=== PATIENT | male | born 1985 | race Two or more races ===

== ENCOUNTER 2018-02-24 16:35 | Emergency (ER) | payer MEDICAID, OTHER ==
[~2018-02-24] VITALS: Ht 188 cm; Wt 117.5 kg
[2018-02-24] MEDS ORDERED: [UNRECOGNIZED DRUG - OTHER] (17:06)
[2018-02-24] MEDS ORDERED: [UNRECOGNIZED DRUG - OTHER] (17:06)
[2018-02-24] MEDS ORDERED: [UNRECOGNIZED DRUG - OTHER] (17:07)
[2018-02-24] MEDS ORDERED: OMEG1CAP23 PO (17:08)
[2018-02-24 17:25] LABS: BASOPHILS # (AUTO) 0.04 x10^3/uL (0-0.1); BASOPHILS % (AUTO) 1 % (0-1); EOSINOPHILS # (AUTO) 0.29 x10^3/uL (0-0.4); EOSINOPHILS % (AUTO) 3 % (1-7); LYMPHOCYTES # (AUTO) 4.44 x10^3/uL (1-3.4); LYMPHOCYTES % (AUTO) 46 % (22-44); MD NO; MEAN CORPUSCULAR HEMOGLOBIN 30.6 pg (27.5-34.5); MEAN CORPUSCULAR HGB CONC 34.2 g/dL (33.2-36.2); MEAN CORPUSCULAR VOLUME 89.5 fL (81-97); MEAN PLATELET VOLUME 11.6 fL (7.4-10.4); MONOCYTES # (AUTO) 0.66 x10^3/uL (0.2-0.8); MONOCYTES % (AUTO) 7 % (2-9); NEUTROPHILS # (AUTO) 4.15 x10^3/uL (1.8-6.8); NEUTROPHILS % (AUTO) 43 % (42-75); PLATELET COUNT 202 x10^3/uL (130-400); RED BLOOD COUNT 5.28 x10^6/uL (4.38-5.82); RED CELL DISTRIBUTION WIDTH 12.7 % (9.4-14.8)
[2018-02-24 17:37] LABS: ALBUMIN 3.7 g/dL (3.4-5.0); ANION GAP 10 mmol/L (5-15); CALCIUM 8.7 mg/dL (8.5-10.1); CHLORIDE 106 mmol/L (98-107)
[2018-02-24 17:44] LABS: ALANINE AMINOTRANSFERASE 120 U/L (12-78); ALKALINE PHOSPHATASE 97 U/L (45-117); BILIRUBIN,TOTAL 0.4 mg/dL (0.2-1.0); CREATININE 1.26 mg/dL (0.7-1.3); TOTAL PROTEIN 7.7 g/dL (6.4-8.2); TROPONIN I < 0.015 ng/mL (0.000-0.045)
[2018-02-24] MEDS ORDERED: ASPIRIN 81 MG TABLET CHEW ONE (19:13)
[2018-02-24] MEDS ORDERED: ASPIRIN 81 MG TABLET CHEW PO ONE (19:30)
[2018-02-24 19:32] LABS: TROPONIN I < 0.015 ng/mL (0.000-0.045)
[2018-02-24 20:07] VITALS: BP 117/73
[2018-02-24 20:48] LABS: AMPHETAMINE SCREEN, URINE Negative (Negative); BARBITURATE SCREEN, URINE Negative (Negative); BENZODIAZEPINE SCREEN, URINE Negative (Negative); CANNABINOID SCREEN, URINE Negative (Negative); COCAINE SCREEN, URINE Negative (Negative); METHADONE SCREEN, URINE Negative (Negative); OPIATE SCREEN, URINE Negative (Negative)
== END 2018-02-24 21:38 | disposition home or self-care (01) ==
LOC: EDBD 16:35 → ED 18:53
DX: R07.89 Other chest pain (principal); E78.5 Hyperlipidemia, unspecified; R68.84 Jaw pain
CPT/HCPCS: 36415; 71046; 80053; 80307; 84484; 85025; 93005; 99285